=== PATIENT | male | born 1975 | race Two or more races ===

== ENCOUNTER 2016-06-15 11:45 | Emergency (ER) | payer BC ==
[~2016-06-15] VITALS: Ht 175.3 cm; Wt 81.6 kg
[2016-06-15 12:45] VITALS: BP 135/87
== END 2016-06-15 12:46 | disposition home or self-care (01) ==
LOC: ER 11:47
DX: R42 Dizziness and giddiness (principal)
CPT/HCPCS: 99283; A4606; Z7610